=== PATIENT | female | born 1990 | race Caucasian/White ===

== ENCOUNTER 2017-08-03 19:07 | Emergency (ER) | payer OTHER ==
[~2017-08-03] VITALS: Ht 162.6 cm; Wt 89.8 kg
[2017-08-03 19:47] VITALS: BP 120/72
[2017-08-03 21:05] VITALS: BP 120/72
--- NOTE | 2017-08-03 21:05 | NUR ---
PATIENT PRESENTS TO ED WITH C/O MID ABD PAIN SINCE THIS AM. PT HAS HX OF GASTRIC SLEEVE 7 MONTHS AGO PT DENIES N/V/D; SKIN IS PINK/WARM/DRY; AAOX4 WITH EVEN AND STEADY GAIT; LUNGS CLEAR BL; HR EVEN AND REGULAR; PT DENIES ANY FEVER, CP, SOB, OR COUGH AT THIS TIME; PATIENT STATES PAIN OF 3/10 AT THIS TIME; VSS; PATIENT POSITIONED FOR COMFORT; HOB ELEVATED; BEDRAILS UP X2; BED DOWN. ER MD MADE AWARE OF PT STATUS.
[2017-08-03] MEDS ORDERED: FAMOTIDINE 20 MG TAB PO ONE (21:25)
[2017-08-03] MEDS ORDERED: ALUMINUM HYD/MAG/SIMETHICONE 30 ML UDC PO ONE (21:25)
== END 2017-08-03 21:56 | disposition home or self-care (01) ==
LOC: MED 19:07
DX: K29.70 Gastritis, unspecified, without bleeding (principal)
CPT/HCPCS: 81002; 81025; 99283